=== PATIENT | female | born 2000 | race Caucasian/White ===

== ENCOUNTER 2019-04-18 04:28 | Inpatient (IN) | payer MEDICAID ==
[2019-04-18] MEDS ORDERED: Penicillin G Potassium 5 MILLUNITS in Sodium Chloride 0.9% 50 ML IV ONE (04:58)
[2019-04-18] MEDS ORDERED: Sodium Chloride 0.9% 10 ML Syringe FLUSH PRN ×2 (04:59→05:52)
[2019-04-18] MEDS ORDERED: Lactated Ringers 500 ML IV ONE (04:59)
[2019-04-18] MEDS ORDERED: Lactated Ringers 1,000 ML IV SCH (05:30)
--- NOTE | 2019-04-18 06:08 | PCM.LDHP ---
L&D History of Present Illness - General Date of Service: 04/18/19 (childbirth) Admit Problem/Dx: Patient Status Order with Admit Dx/Problem 04/18/19 05:52 Patient Status [ADT] Routine Admission Diagnosis/Problem Admission Diagnosis/Problem Labor established Source of Information: Patient History Limitations: Reports: No Limitations - History of Present Illness Timing/Duration: Reports: minutes: (1-2), constant/continuous, getting worse Location, : Reports: Abdomen Quality: Reports: Pressure Severity: Severe Improves with: Reports: None Worsens with: Reports: None - Related Data Allergies/Adverse Reactions: Allergies Allergy/AdvReac Type Severity Reaction Status Date / Time No Known Allergies Allergy Verified 04/18/19 05:28 Past Medical History [employer] History: Reports: : 2 LMP (Approximate): (stephanie 04/18/19) H&P Review of Systems - Review of Systems: Review Of Systems: See Below General: Reports: No Symptoms HEENT: Reports: No Symptoms Pulmonary: Reports: No Symptoms Cardiovascular: Reports: No Symptoms Gastrointestinal: Reports: No Symptoms Genitourinary: Reports: No Symptoms Musculoskeletal: Reports: No Symptoms Skin: Reports: No Symptoms Psychiatric: Reports: No Symptoms Neurological: Reports: No Symptoms Hematologic/Lymphatic: Reports: No Symptoms Immunologic: Reports: No Symptoms L&D Exam - Exam Exam: See Below - Vital Signs Vital Signs: Last Vital Signs Temp 98.2 F 04/18/19 04:36 Pulse 87 04/18/19 04:36 Resp 20 04/18/19 04:36 BP 120/68 04/18/19 04:36 Pulse Ox 99 04/18/19 04:36 - OB Specific Contraction Duration (sec): 30-80 Contraction Frequency (min): 1.5-3 Contraction Intensity: Strong Movement: Active Heart Tones: Present Heart Rate (FHR) Variability: Minimal (0-5 bpm) Presentation: Vertex Estimated Weight: 7-8 - Oconnell Score Oconnell Score Cervix Position: Anterior Oconnell Score Consistency: Soft Oconnell Score Effacement: >80% Oconnell Score Dilation: 3-4 cm Oconnell Score 's Station: -1 ,0 Oconnell Score Total: 11 - Exam General: Alert, Oriented HEENT: PERRLA, Mucosa Moist & [place] Neck: Supple Lungs: Clear to Auscultation, Normal Respiratory Effort Cardiovascular: Regular Rate, Regular Rhythm GI/Abdominal Exam: Normal Bowel Sounds Rectal Exam: Normal Exam Genitourinary: Cervical dilitation, Enlarged uterus Back Exam: Normal Inspection Extremities: No Pedal Edema, Normal Capillary Refill Skin: Warm Neurological: Cranial Nerves Intact Psychiatric: Alert, Normal Affect, Normal Mood - Patient Data Lab Results Last 24 hrs: Laboratory Results - last 24 hr 04/18/19 Range/Units 04:59 WBC 16.4 H (4.5-11.0) K/uL RBC 4.49 (3.30-5.50) M/uL Hgb 11.8 L (12.0-15.0) g/dL Hct 36.9 (36.0-48.0) % MCV 82 (80-98) fL MCH 26 L (27-31) pg MCHC 32 (32-36) % Plt Count 284 (150-400) K/uL Neut % (Auto) 79 H (36-66) % Lymph % (Auto) 15 L (24-44) % [place] % (Auto) 6 (2-6) % Eos % (Auto) 0 L (2-4) % Baso % (Auto) 0 (0-1) % Result Diagrams: 04/18/19 04:59 - Problem List (1) SNOMED Code(s): 19963114 ICD Code: Z34.90 - ENCNTR FOR SUPRVSN OF NORMAL , UNSP, UNSP TRIMESTER Status: Acute Current Visit: Yes Qualifiers: Weeks of gestation: 40 weeks Qualified Code(s): Z3A.40 - 40 weeks gestation of (2) Active labor at term SNOMED Code(s): 20487002 ICD Code: HJX3020 - Status: Acute Current Visit: Yes Problem List Initiated/Reviewed/Updated: Yes Orders Last 24hrs: Active Orders 24 hr Category Date Time Status Patient Status [ADT] Routine ADT 04/18/19 05:52 Ordered Communication Order [RC] ASDIRECTED Care 04/18/19 05:52 Ordered Heart Tones [RC] PER UNIT ROUTINE Care 04/18/19 05:52 Ordered May Shower [RC] ASDIRECTED Care 04/18/19 05:52 Ordered Notify Provider Vital Signs [RC] PRN Care 04/18/19 05:52 Ordered Notify Provider [RC] PRN Care 04/18/19 05:52 Ordered OB Check [OM.PC] Click to Edit Care 04/18/19 04:32 Ordered Peripheral IV Care [RC] . DIRECTED Care 04/18/19 05:00 Active Up ad Cha [RC] ASDIRECTED Care 04/18/19 05:52 Ordered Vital Signs [RC] PER UNIT ROUTINE Care 04/18/19 05:52 Ordered Regular Diet [DIET] Diet 04/18/19 Lunch Ordered DRUG SCREEN, URINE [URCHEM] Routine Lab 04/18/19 04:32 Ordered UA W/MICROSCOPIC [URIN] Routine Lab 04/18/19 04:32 Ordered Lactated Ringers @ 100 MLS/HR(1,000ml) Med 04/18/19 05:30 Ordered Lactated Ringers [Ringers, Lactated] 1,000 ml IV ASDIRECTED Penicillin G Potassium [Pfizerpen] 2.5 millunits Med 04/18/19 09:00 Active Sodium Chloride 0.9% [Normal Saline] 50 ml IV Q4H Sodium Chloride 0.9% [Saline Flush] Med 04/18/19 04:59 Active 10 ml FLUSH ASDIRECTED PRN Sodium Chloride 0.9% [Saline Flush] Med 04/18/19 05:52 Ordered 10 ml FLUSH ASDIRECTED PRN Peripheral IV Insertion Adult [OM.PC] Routine Oth 04/18/19 04:59 Ordered Saline Lock Insert [OM.PC] Routine Oth 04/18/19 05:52 Ordered Resuscitation Status Routine Resus Stat 04/18/19 05:52 Ordered Medication Orders Penicillin G Potassium 2.5 (millunits/ Sodium Chloride) 50 mls @ 100 mls/hr IV Q4H ALESSANDRA Lactated Ringer's (Ringers, Lactated) 1,000 mls @ 100 mls/hr IV ASDIRECTED ALESSANDRA Sodium Chloride (Saline Flush) 10 ml FLUSH ASDIRECTED PRN PRN Reason: Keep Vein Open Sodium Chloride (Saline Flush) 10 ml FLUSH ASDIRECTED PRN PRN Reason: Keep Vein Open Assessment/Plan Comment:: 04/18/19 active labor gbs positive, treated plan vaginal delivery
[2019-04-18] MEDS ORDERED: fentaNYL 100 MCG/2 ML SDV IVPUSH ONE (07:06)
--- NOTE | 2019-04-18 07:38 | PCM.PNLD ---
Labor Progress Note - VS & Meds Vital Signs: Last Vital Signs Temp 98.2 F 04/18/19 04:36 Pulse 87 04/18/19 04:36 Resp 20 04/18/19 04:36 BP 120/68 04/18/19 04:36 Pulse Ox 99 04/18/19 04:36 Active Medications: Current Medications Penicillin G Potassium 2.5 (millunits/ Sodium Chloride) 50 mls @ 100 mls/hr IV Q4H ALESSANDRA Lactated Ringer's (Ringers, Lactated) 1,000 mls @ 100 mls/hr IV ASDIRECTED ALESSANDRA Last Admin: 04/18/19 05:30 Dose: 100 mls/hr Oxytocin/Sodium Chloride (Pitocin In Ns 20 Units/1,000 Ml) 20 unit in 1,000 mls @ 999 mls/hr IV ONETIME ONE; Protocol Stop: 04/18/19 07:55 Sodium Chloride (Saline Flush) 10 ml FLUSH ASDIRECTED PRN PRN Reason: Keep Vein Open Discontinued Medications Fentanyl (Sublimaze) 25 mcg IVPUSH ONETIME ONE Stop: 04/18/19 07:07 Last Admin: 04/18/19 07:13 Dose: 25 mcg Penicillin G Potassium 5 (millunits/ Sodium Chloride) 50 mls @ 100 mls/hr IV ONETIME ONE Stop: 04/18/19 05:27 Last Admin: 04/18/19 05:51 Dose: 100 mls/hr Lactated Ringer's (Ringers, Lactated) 500 mls @ 999 mls/hr IV BOLUS ONE Stop: 04/18/19 05:29 Last Admin: 04/18/19 05:00 Dose: 999 mls/hr Sodium Chloride (Saline Flush) 10 ml FLUSH ASDIRECTED PRN PRN Reason: Keep Vein Open - Uterine Contractions Uterine Monitoring Mode: External [place] Contraction Frequency (min): 1.5-3 Contraction Duration (sec): 30-80 Contraction Intensity: Strong Uterine Resting Tone: Soft - Monitoring Monitor Mode: Doppler/Auscultation Heart Rate (FHR) Baseline: 135 Heart Rate (FHR) Variability: Minimal (0-5 bpm) - Vaginal Exam Dilation (cm): 9 Effacement (Percent): 100 Station: -2 Cervical Position: Midposition Sterile Vaginal Exam Performed By: Susan Patiño Vaginal Exam Comment: bloody show. - Labor Progress (Free Text) Labor Progress: Nice progression of labor. in tub and small dose of Fentanyl anticipate vaginal delivery
[2019-04-18] MEDS: Penicillin G Potassium 2.5 MILLUNITS in Sodium Chloride 0.9% 50 ML IV SCH ×2 (09:00→14:59)
[2019-04-18] MEDS ORDERED: Benzocaine 20% Top Spray 56 GM Bottle TOP ONE (10:01)
[2019-04-18] MEDS ORDERED: Witch Hazel Medicated Pads 100/Jar TOP ONE (10:01)
[2019-04-18] MEDS ORDERED: Acetaminophen 325 MG Tab, 50 Tab Bulk Bottle PO PRN (10:01)
[2019-04-18] MEDS ORDERED: Hydrocortisone 2.5% Crm 30 GM Tube TOP PRN (10:01)
[2019-04-18] MEDS ORDERED: Ibuprofen 200 MG Tab, 24 Tab Bulk Bottle PO PRN (10:01)
[2019-04-18] MEDS ORDERED: Lanolin 100% Cream 40 GM Tube TOP ONE (10:01)
--- NOTE | 2019-04-18 10:15 | PCM.DEL ---
L & D Note - General Info Date of Service: 04/18/19 (childbirth) Mother's Due Date: 04/18/19 - Delivery Note Labor: Spontaneous Delivery Outcome: Livebirth Infant Delivery Method: Spontaneous Vaginal Delivery-Single Delivery Mode: Spontaneous Presentation: Left Occiput Anterior (DARLING) Nuchal Cord: None Anesthesia Type: None Amniotic Fluid Description: Clear Episiotomy Type: None Laceration: 1st Degree, Labial Placenta: Intact, Spontaneous Cord: 3 Vessels Estimated Blood Loss: 200 Resuscitation Needed: No [place]: Stimulated, Warmed, [place] Used Provider: Susan Patiño Score 1 min: 8 (one for color, one for tone) Score 5 min: 9 (one for color) Second Stage Interventions: Reports: Second Nurse Reviewed Heart Tones, Encouragement Given, Pushing Effectively, Pushing, McRobert's Position Delivery Comments (Free Text/Narrative):: This 19 year old who is 40 weeks delivered a viable female via at 0939 in DARLING position over an intact perineum. The was placed on mother's abdomen where she was dried and stimulated. She cried spontaneously. Apgars 8 & 9 one for color and done for tone at one minute and one for color at 5 minutes.. Three vessel cord, active management of the third stage and delayed cord clamping were done. The placenta was expressed spontaneously intact, nena. Small right and left labial tears that did not need repaired were the only lacerations found. EBL 200cc Mother and baby to , and baby to breast within 30 minutes of delivery. first stage 6527-5618 Second stage 4074-3564 Third stage 6135-9635 [ - General Info Date of Service: 04/18/19 Functional Status: Reports: Pain Controlled - Review of Systems General: Reports: No Symptoms HEENT: Reports: No Symptoms Pulmonary: Reports: No Symptoms Cardiovascular: Reports: No Symptoms Gastrointestinal: Reports: No Symptoms Genitourinary: Reports: No Symptoms Musculoskeletal: Reports: No Symptoms Skin: Reports: No Symptoms Neurological: Reports: No Symptoms Psychiatric: Reports: No Symptoms - Patient Data Vitals - Most Recent: Last Vital Signs Temp 98.2 F 04/18/19 04:36 Pulse 87 04/18/19 04:36 Resp 20 04/18/19 04:36 BP 120/68 04/18/19 04:36 Pulse Ox 99 04/18/19 04:36 I&O - Last 24 Hours: Intake & Output 04/17/19 04/18/19 04/18/19 22:59 06:59 14:59 Intake Total 100 Balance 100 Lab Results Last 24 Hours: Laboratory Results - last 24 hr 04/18/19 Range/Units 04:59 WBC 16.4 H (4.5-11.0) K/uL RBC 4.49 (3.30-5.50) M/uL Hgb 11.8 L (12.0-15.0) g/dL Hct 36.9 (36.0-48.0) % MCV 82 (80-98) fL MCH 26 L (27-31) pg MCHC 32 (32-36) % Plt Count 284 (150-400) K/uL Neut % (Auto) 79 H (36-66) % Lymph % (Auto) 15 L (24-44) % [place] % (Auto) 6 (2-6) % Eos % (Auto) 0 L (2-4) % Baso % (Auto) 0 (0-1) % Med Orders - Current: Current Medications Acetaminophen (Tylenol Bulk Bottle) 0 mg PO Q4H PRN PRN Reason: Pain Benzocaine (Bdnp-O-Zaajbel 20% [place]) 0 gm TOP Q4H ONE Stop: 04/18/19 10:02 Emollient Ointment (Lansinoh Hpa) 1 gm TOP ASDIRECTED ONE Stop: 04/18/19 10:02 Hydrocortisone (Proctozone-Hc 2.5% Crm) 1 gm TOP ASDIRECTED PRN PRN Reason: Itching Penicillin G Potassium 2.5 (millunits/ Sodium Chloride) 50 mls @ 100 mls/hr IV Q4H [facility] Last Admin: 04/18/19 09:00 Dose: 100 mls/hr Lactated Ringer's (Ringers, Lactated) 1,000 mls @ 100 mls/hr IV ASDIRECTED [facility] Last Admin: 04/18/19 05:30 Dose: 100 mls/hr Ibuprofen (Motrin Bulk Bottle) 600 mg PO Q6H PRN PRN Reason: Pain Sodium Chloride (Saline Flush) 10 ml FLUSH ASDIRECTED PRN PRN Reason: Keep Vein Open Witandrea Bone (Tucks) 1 pad TOP ASDIRECTED ONE Stop: 04/18/19 10:02 Discontinued Medications Fentanyl (Sublimaze) 25 mcg IVPUSH ONETIME ONE Stop: 04/18/19 07:07 Last Admin: 04/18/19 07:13 Dose: 25 mcg Penicillin G Potassium 5 (millunits/ Sodium Chloride) 50 mls @ 100 mls/hr IV ONETIME ONE Stop: 04/18/19 05:27 Last Admin: 04/18/19 05:51 Dose: 100 mls/hr Lactated Ringer's (Ringers, Lactated) 500 mls @ 999 mls/hr IV BOLUS ONE Stop: 04/18/19 05:29 Last Admin: 04/18/19 05:00 Dose: 999 mls/hr Oxytocin/Sodium Chloride (Pitocin In Ns 20 Units/1,000 Ml) 20 unit in 1,000 mls @ 999 mls/hr IV ONETIME ONE; Protocol Stop: 04/18/19 07:55 Sodium Chloride (Saline Flush) 10 ml FLUSH ASDIRECTED PRN PRN Reason: Keep Vein Open - Exam General: Alert, Oriented HEENT: Pupils Equal Neck: Supple Lungs: Clear to Auscultation, Normal Respiratory Effort Cardiovascular: Regular Rhythm GI/Abdominal Exam: Soft, Non-Tender (Female) Exam: Cervical Dilatation, Enlarged Uterus, Vaginal Bleeding Back Exam: Normal Inspection Extremities: No Pedal Edema, Normal Capillary Refill Skin: Warm, Dry Psy/Mental Status: Alert, Normal Affect, Normal Mood - Problem List & Annotations (1) SNOMED Code(s): 59023181 Code(s): Z34.90 - ENCNTR FOR SUPRVSN OF NORMAL , UNSP, UNSP TRIMESTER Status: Acute Current Visit: Yes Qualifiers: Weeks of gestation: 40 weeks Qualified Code(s): Z3A.40 - 40 weeks gestation of (2) Active labor at term SNOMED Code(s): 57558933 Code(s): GED9667 - Status: Acute Current Visit: Yes (3) Positive GBS test SNOMED Code(s): 609006072, 320105345 Code(s): B95.1 - STREPTOCOCCUS, GROUP B, CAUSING DISEASES CLASSD ELSR Status: Acute Current Visit: Yes (4) Vaginal delivery SNOMED Code(s): 075346636 Code(s): O80 - ENCOUNTER FOR FULL-TERM UNCOMPLICATED DELIVERY Status: Acute Current Visit: Yes - Problem List Review Problem List Initiated/Reviewed/Updated: Yes - My Orders Last 24 Hours: My Active Orders 04/18/19 04:32 OB Check [OM.PC] Click to Edit DRUG SCREEN, URINE [URCHEM] Routine UA W/MICROSCOPIC [URIN] Routine 04/18/19 04:59 Sodium Chloride 0.9% [Saline Flush] 10 ml FLUSH ASDIRECTED PRN Peripheral IV Insertion Adult [OM.PC] Routine 04/18/19 05:00 Peripheral IV Care [RC] . DIRECTED 04/18/19 05:30 Lactated Ringers [Ringers, Lactated] 1,000 ml IV ASDIRECTED 04/18/19 05:52 Communication Order [RC] ASDIRECTED May Shower [RC] ASDIRECTED Notify Provider Vital Signs [RC] PRN Notify Provider [RC] PRN Up ad Cha [RC] ASDIRECTED Vital Signs [RC] PER UNIT ROUTINE Saline Lock Insert [OM.PC] Routine Resuscitation Status Routine 04/18/19 09:00 Penicillin G Potassium [Pfizerpen] 2.5 millunits Sodium Chloride 0.9% [Normal Saline] 50 ml IV Q4H 04/18/19 10:01 Acetaminophen [Tylenol Bulk Bottle] See Dose Instructions PO Q4H PRN Benzocaine [Ekyc-U-Usxvzej 20% [place]] See Dose Instructions TOP Q4H ONE Hydrocortisone [Proctozone-HC 2.5% Crm] 1 gm TOP ASDIRECTED PRN Ibuprofen [Motrin Bulk Bottle] 600 mg PO Q6H PRN Lanolin [Lansinoh HPA] 1 gm TOP ASDIRECTED ONE [place] [Tucks] 1 pad TOP ASDIRECTED ONE DVT/VTE Prophylaxis Reflex [OM.PC] Routine 04/18/19 10:02 Patient Status [ADT] Routine Vital Signs [RC] PFP 04/18/19 10:03 Antiembolic Devices [RC] .Routine VTE/DVT Education [RC] Click to Edit 04/18/19 Lunch Regular Diet [DIET] 04/19/19 05:11 CBC WITH AUTO DIFF [HEME] AM - Assessment Assessment:: 04/18/19 19 year old 40 weeks without complications GBS positive and treated. Female , - Plan Plan:: 04/18/19 active labor gbs positive, treated plan vaginal delivery 04/18/19 Routine cares support 48 hour stay due positive GBS cbc in am
[2019-04-18] MEDS ORDERED: Lanolin 100% Cream 40 GM Tube TOP PRN (11:50)
[2019-04-19] MEDS ORDERED: Docusate Sodium 100 MG Cap PO PRN (09:43)
--- NOTE | 2019-04-19 09:56 | PCM.PNPP ---
- General Info Date of Service: 04/19/19 (PPD 1) Admission Dx/Problem (Free Text): Patient Status Order with Admit Dx/Problem 04/18/19 05:52 Patient Status [ADT] Routine Admission Diagnosis/Problem Admission Diagnosis/Problem Labor established Functional Status: Reports: Pain Controlled - Review of Systems General: Reports: No Symptoms HEENT: Reports: No Symptoms Pulmonary: Reports: No Symptoms Cardiovascular: Reports: No Symptoms Gastrointestinal: Reports: No Symptoms Genitourinary: Reports: No Symptoms Musculoskeletal: Reports: No Symptoms Skin: Reports: No Symptoms Neurological: Reports: No Symptoms Psychiatric: Reports: No Symptoms - General Info Date of Service: 04/19/19 (PPD 1) - Patient Data Vital Signs - Most Recent: Last Vital Signs Temp 96.9 F 04/19/19 07:26 Pulse 63 04/19/19 07:26 Resp 16 04/19/19 07:26 BP 115/59 L 04/19/19 07:26 Pulse Ox 96 04/19/19 07:26 Weight - Most Recent: 158 lb 0.014 oz Lab Results - Last 24 Hours: Laboratory Results - last 24 hr 04/19/19 Range/Units 05:40 WBC 13.7 H (4.5-11.0) K/uL RBC 4.01 (3.30-5.50) M/uL Hgb 10.5 L (12.0-15.0) g/dL Hct 33.3 L (36.0-48.0) % MCV 83 (80-98) fL MCH 26 L (27-31) pg MCHC 32 (32-36) % Plt Count 214 (150-400) K/uL Neut % (Auto) 76 H (36-66) % Lymph % (Auto) 17 L (24-44) % [place] % (Auto) 6 (2-6) % Eos % (Auto) 0 L (2-4) % Baso % (Auto) 0 (0-1) % Med Orders - Current: Current Medications Acetaminophen (Tylenol Bulk Bottle) 325 - 650 mg PO Q4H PRN PRN Reason: Pain Last Admin: 04/18/19 12:41 Dose: 1 bottle Docusate Sodium (Colace) 100 mg PO DAILY PRN PRN Reason: Constipation Emollient Ointment (Lansinoh Hpa) 0 gm TOP ASDIRECTED PRN PRN Reason: Nipple Soreness Hydrocortisone (Proctozone-Hc 2.5% Crm) 0 gm TOP ASDIRECTED PRN PRN Reason: Itching Last Admin: 04/18/19 18:16 Dose: 1 applic Ibuprofen (Motrin Bulk Bottle) 600 mg PO Q6H PRN PRN Reason: Pain Last Admin: 04/18/19 12:40 Dose: 1 bottle Sodium Chloride (Saline Flush) 10 ml FLUSH ASDIRECTED PRN PRN Reason: Keep Vein Open Discontinued Medications Benzocaine (Ahfx-G-Ndhimgf 20% [place]) 0 gm TOP Q4H ONE Stop: 04/18/19 10:02 Last Admin: 04/18/19 12:40 Dose: 56 gm Emollient Ointment (Lansinoh Hpa) 1 gm TOP ASDIRECTED ONE Stop: 04/18/19 10:02 Last Admin: 04/18/19 12:40 Dose: 1 applic Fentanyl (Sublimaze) 25 mcg IVPUSH ONETIME ONE Stop: 04/18/19 07:07 Last Admin: 04/18/19 07:13 Dose: 25 mcg Penicillin G Potassium 5 (millunits/ Sodium Chloride) 50 mls @ 100 mls/hr IV ONETIME ONE Stop: 04/18/19 05:27 Last Admin: 04/18/19 05:51 Dose: 100 mls/hr Penicillin G Potassium 2.5 (millunits/ Sodium Chloride) 50 mls @ 100 mls/hr IV Q4H [facility] Last Admin: 04/18/19 14:59 Dose: Not Given Lactated Ringer's (Ringers, Lactated) 500 mls @ 999 mls/hr IV BOLUS ONE Stop: 04/18/19 05:29 Last Admin: 04/18/19 05:00 Dose: 999 mls/hr Lactated Ringer's (Ringers, Lactated) 1,000 mls @ 100 mls/hr IV ASDIRECTED [facility] Last Admin: 04/18/19 05:30 Dose: 100 mls/hr Oxytocin/Sodium Chloride (Pitocin In Ns 20 Units/1,000 Ml) 20 unit in 1,000 mls @ 999 mls/hr IV ONETIME ONE; Protocol Stop: 04/18/19 07:55 Last Admin: 04/18/19 09:50 Dose: 999 ml/hr, 999 mls/hr Sodium Chloride (Saline Flush) 10 ml FLUSH ASDIRECTED PRN PRN Reason: Keep Vein Open Witandrea Bone (Tucks) 1 pad TOP ASDIRECTED ONE Stop: 04/18/19 10:02 Last Admin: 04/18/19 12:40 Dose: 1 pad - Infant Interaction Infant Disposition, : [place] in Room with Family Infant Interaction: Holding Feeding: Breastfed ; Nursed Well Support Person: Mother, Other (see below) - Recovery Exam Fundal Tone: Firm Fundal Level: At Umbilicus Lochia Amount: Small Lochia Color: [place]/Red Perineum Description: Intact, Minimal Bruising/Swelling Episiotomy/Laceration: None Urinary Elimination: Voided - Exam General: Alert, Oriented HEENT: Pupils Equal, Mucous Membr. Moist/[place] Neck: Supple Lungs: Normal Respiratory Effort Cardiovascular: Regular Rate GI/Abdominal Exam: Normal Bowel Sounds, Soft Extremities: Normal Inspection, No Pedal Edema, Normal Capillary Refill Skin: Warm, Dry Wound/Incisions: Healing Well Neurological: No New Focal Deficit Psy/Mental Status: Alert, Normal Affect, Normal Mood - Problem List & Annotations (1) SNOMED Code(s): 18062440 Code(s): Z34.90 - ENCNTR FOR SUPRVSN OF NORMAL , UNSP, UNSP TRIMESTER Status: Acute Current Visit: Yes Qualifiers: Weeks of gestation: 40 weeks Qualified Code(s): Z3A.40 - 40 weeks gestation of (2) Active labor at term SNOMED Code(s): 83645940 Code(s): TYA1870 - Status: Acute Current Visit: Yes (3) Positive GBS test SNOMED Code(s): 204137532, 708617994 Code(s): B95.1 - STREPTOCOCCUS, GROUP B, CAUSING DISEASES CLASSD ELSWHR Status: Acute Current Visit: Yes (4) Vaginal delivery SNOMED Code(s): 015337479 Code(s): O80 - ENCOUNTER FOR FULL-TERM UNCOMPLICATED DELIVERY Status: Acute Current Visit: Yes - Problem List Review Problem List Initiated/Reviewed/Updated: Yes - My Orders Last 24 Hours: My Active Orders 04/18/19 10:01 Acetaminophen [Tylenol Bulk Bottle] 325 - 650 mg PO Q4H PRN Hydrocortisone [Proctozone-HC 2.5% Crm] 0 gm TOP ASDIRECTED PRN Ibuprofen [Motrin Bulk Bottle] 600 mg PO Q6H PRN DVT/VTE Prophylaxis Reflex [OM.PC] Routine 04/18/19 10:02 Patient Status [ADT] Routine Vital Signs [RC] Q4H 04/18/19 10:03 Antiembolic Devices [RC] .Routine VTE/DVT Education [RC] Click to Edit 04/18/19 11:50 Lanolin [Lansinoh HPA] 0 gm TOP ASDIRECTED PRN 04/18/19 Lunch Regular Diet [DIET] 04/19/19 09:43 Docusate Sodium [Colace] 100 mg PO DAILY PRN - Assessment Assessment:: 04/18/19 19 year old 40 weeks without complications GBS positive and treated. Female , 04/19/19 Doing well HGB 10.5 Super light flow no pain with voiding and mild cramping Mood very happy - Plan Plan:: 04/18/19 active labor gbs positive, treated plan vaginal delivery 04/18/19 Routine cares support 48 hour stay due positive GBS cbc in am 04/19/19 Continue routine cares education on and infant cares today home tomorrow
--- NOTE | 2019-04-20 08:06 | PCM.PNPP ---
- General Info Date of Service: 04/20/19 (PPD 2 D/C) Admission Dx/Problem (Free Text): Patient Status Order with Admit Dx/Problem 04/18/19 05:52 Patient Status [ADT] Routine Admission Diagnosis/Problem Admission Diagnosis/Problem Labor established Functional Status: Reports: Pain Controlled - Review of Systems General: Reports: No Symptoms HEENT: Reports: No Symptoms Pulmonary: Reports: No Symptoms Cardiovascular: Reports: No Symptoms Gastrointestinal: Reports: No Symptoms Genitourinary: Reports: No Symptoms Musculoskeletal: Reports: No Symptoms Skin: Reports: No Symptoms Neurological: Reports: No Symptoms Psychiatric: Reports: No Symptoms - Patient Data Vital Signs - Most Recent: Last Vital Signs Temp 98.5 F 04/20/19 07:09 Pulse 66 04/20/19 07:09 Resp 18 04/20/19 07:09 BP 115/60 04/20/19 07:09 Pulse Ox 94 L 04/20/19 07:09 Weight - Most Recent: 158 lb 0.014 oz I&O - Last 24 Hours: Intake & Output 04/19/19 04/20/19 04/20/19 22:59 06:59 14:59 Intake Total 2120 Balance 2120 Med Orders - Current: Current Medications Acetaminophen (Tylenol Bulk Bottle) 325 - 650 mg PO Q4H PRN PRN Reason: Pain Last Admin: 04/18/19 12:41 Dose: 1 bottle Docusate Sodium (Colace) 100 mg PO DAILY PRN PRN Reason: Constipation Last Admin: 04/19/19 18:13 Dose: 100 mg Emollient Ointment (Lansinoh Hpa) 0 gm TOP ASDIRECTED PRN PRN Reason: Nipple Soreness Hydrocortisone (Proctozone-Hc 2.5% Crm) 0 gm TOP ASDIRECTED PRN PRN Reason: Itching Last Admin: 04/18/19 18:16 Dose: 1 applic Ibuprofen (Motrin Bulk Bottle) 600 mg PO Q6H PRN PRN Reason: Pain Last Admin: 04/18/19 12:40 Dose: 1 bottle Sodium Chloride (Saline Flush) 10 ml FLUSH ASDIRECTED PRN PRN Reason: Keep Vein Open Discontinued Medications Benzocaine (Iqno-T-Nkebhwu 20% Citra) 0 gm TOP Q4H ONE Stop: 04/18/19 10:02 Last Admin: 04/18/19 12:40 Dose: 56 gm Emollient Ointment (Lansinoh Hpa) 1 gm TOP ASDIRECTED ONE Stop: 04/18/19 10:02 Last Admin: 04/18/19 12:40 Dose: 1 applic Fentanyl (Sublimaze) 25 mcg IVPUSH ONETIME ONE Stop: 04/18/19 07:07 Last Admin: 04/18/19 07:13 Dose: 25 mcg Penicillin G Potassium 5 (millunits/ Sodium Chloride) 50 mls @ 100 mls/hr IV ONETIME ONE Stop: 04/18/19 05:27 Last Admin: 04/18/19 05:51 Dose: 100 mls/hr Penicillin G Potassium 2.5 (millunits/ Sodium Chloride) 50 mls @ 100 mls/hr IV Q4H [facility] Last Admin: 04/18/19 14:59 Dose: Not Given Lactated Ringer's (Ringers, Lactated) 500 mls @ 999 mls/hr IV BOLUS ONE Stop: 04/18/19 05:29 Last Admin: 04/18/19 05:00 Dose: 999 mls/hr Lactated Ringer's (Ringers, Lactated) 1,000 mls @ 100 mls/hr IV ASDIRECTED ALESSANDRA Last Admin: 04/18/19 05:30 Dose: 100 mls/hr Oxytocin/Sodium Chloride (Pitocin In Ns 20 Units/1,000 Ml) 20 unit in 1,000 mls @ 999 mls/hr IV ONETIME ONE; Protocol Stop: 04/18/19 07:55 Last Admin: 04/18/19 09:50 Dose: 999 ml/hr, 999 mls/hr Sodium Chloride (Saline Flush) 10 ml FLUSH ASDIRECTED PRN PRN Reason: Keep Vein Open Witch [place] (Tucks) 1 pad TOP ASDIRECTED ONE Stop: 04/18/19 10:02 Last Admin: 04/18/19 12:40 Dose: 1 pad - Interaction Disposition, : in Room with Family Infant Interaction: Holding Infant Feeding: Breastfed ; Nursed Well Support Person: Mother, Other (see below) - Recovery Exam Fundal Tone: Firm Fundal Level: At Umbilicus Lochia Amount: Small Lochia Color: Rubra/Red Perineum Description: Intact, Minimal Bruising/Swelling Episiotomy/Laceration: None Urinary Elimination: Voided - Exam General: Alert, Oriented HEENT: Pupils Equal Neck: Supple Lungs: Clear to Auscultation, Normal Respiratory Effort Cardiovascular: Regular Rate, Regular Rhythm GI/Abdominal Exam: Normal Bowel Sounds, Soft, Non-Tender, No Organomegaly, No Distention, No Abnormal Bruit, No Mass, Pelvis Stable Extremities: Normal Inspection, Normal Range of Motion, Non-Tender, No Pedal Edema, Normal Capillary Refill Skin: Warm, Dry, Intact Wound/Incisions: Healing Well Neurological: No New Focal Deficit Psy/Mental Status: Alert, Normal Affect, Normal Mood - Problem List & Annotations (1) SNOMED Code(s): 58261802 Code(s): Z34.90 - ENCNTR FOR SUPRVSN OF NORMAL , UNSP, UNSP TRIMESTER Status: Acute Current Visit: Yes Qualifiers: Weeks of gestation: 40 weeks Qualified Code(s): Z3A.40 - 40 weeks gestation of (2) Active labor at term SNOMED Code(s): 19770715 Code(s): NJN6250 - Status: Acute Current Visit: Yes (3) Positive GBS test SNOMED Code(s): 138900006, 487320858 Code(s): B95.1 - STREPTOCOCCUS, GROUP B, CAUSING DISEASES CLASSD [id number] Status: Acute Current Visit: Yes (4) Vaginal delivery SNOMED Code(s): 795708438 Code(s): O80 - ENCOUNTER FOR FULL-TERM UNCOMPLICATED DELIVERY Status: Acute Current Visit: Yes - Problem List Review Problem List Initiated/Reviewed/Updated: Yes - My Orders Last 24 Hours: My Active Orders 04/19/19 09:43 Docusate Sodium [Colace] 100 mg PO DAILY PRN - Assessment Assessment:: 04/18/19 19 year old 40 weeks without complications GBS positive and treated. Female , 04/19/19 Doing well HGB 10.5 Super light flow no pain with voiding and mild cramping Mood very happy 04/20/19 Happy breasts are soft, baby latches well Not much cramping, light flow ready to go home - Plan Plan:: 04/18/19 active labor gbs positive, treated plan vaginal delivery 04/18/19 Routine cares support 48 hour stay due positive GBS cbc in am 04/19/19 Continue routine cares education on and infant cares today home tomorrow 04/20/19 Home today See me 6 weeks in clinic
== END 2019-04-20 10:48 | disposition home or self-care (01) | DRG 807 ==
LOC: JP.OBCHECK 04:28 → JP.OB 05:00 → OBSVTOIN 09:39 → JP.OB 09:39 → JP.MS 11:48
PROVIDERS: ADMIT Nurse Practitioner Family; ATTEND Nurse Practitioner Family
PROC: 10E0XZZ Delivery of Products of Conception, External Approach (ICD-10-PCS; principal; 2019-04-18)
PROC: 10907ZC Drainage of Amniotic Fluid, Therapeutic from Products of Conception, Via Natural or Artificial Opening (ICD-10-PCS; 2019-04-18)
PROC: 0HQ9XZZ Repair Perineum Skin, External Approach (ICD-10-PCS; 2019-04-18)
DX: O48.0 Post-term pregnancy (principal); Z37.0 Single live birth; O99.824 Streptococcus B carrier state complicating childbirth; Z3A.40 40 weeks gestation of pregnancy; O70.0 First degree perineal laceration during delivery
CPT/HCPCS: 36415; 59409; 85025; 99211; A9270-GY; J2540; J2590; J3010; J7050; J7120